=== PATIENT | female | born 1970 | race Two or more races ===

== ENCOUNTER → 2024-03-13 | Day surgery (SDC) | payer BC, OTHER ==
[~2024-03-13] VITALS: Ht 167.6 cm; Wt 118.8 kg
[~2024-03-13] MED LIST: AMLO1TAB23 PO; KETAMINE 50mg/ML 1ml syringe ONE; NAP500T PO; ONDANSETRON HCL 4 MG/2 ML VIAL ONE; PROPOFOL 10 MG/ML 20 ML IV ONE
--- NOTE | 2024-03-13 10:10 | DVHHP2 ---
GI H&P Pre-Op Assessment Date: 03/13/24 Chief complaint: epigastric pain and heartburn HPI: per clinic note Past medical history: per clinic note Past surgical history: per clinic note Family history: per clinic note Physical exam: General: NAD, AAOX3 HEENT: PERRL, no scleral icterus, normal hearing, gums without lesions or bleeding, oropharynx clear without erythema or exudate. Neck: Supple without enlargement of the thyroid, or lymphadenopathy. Chest: Normal size and shape, no tenderness, lung bedoya clear to auscultation and percussion, nonlabored breathing. Heart: RRR, no murmur Abdomen: non-distended, no tenderness to palpation, +BS, no hepatosplenomegaly Extremities: no edema Neurological: CN II-XII intact, sensation intact in all extremities, 5+ strength in all extremities Skin: No rashes, No jaundice Assessment: - epigastric pain and heartburn Plan: - EGD - Risks (bleeding, infection, perforation, reaction to sedation medications and cardiopulmonary arrest) and benefit of the procedure were explained to patient. Patient agrees to undergo the procedure. COLTON PEÑALOZA MD Mar 13, 2024 10:10
[2024-03-13 10:33] VITALS: RESP 19; TEMP 97.1; O2SAT 97
--- NOTE | 2024-03-13 10:34 | DVHOP2 ---
Operative Report DATE OF OPERATION: 03/13/24 PROCEDURE: Upper Endoscopy. PREOPERATIVE INDICATION: The patient is a 54 -year-old female undergoing endoscopy for epigastric pain and heartburn. POSTOPERATIVE DIAGNOSES: 1. Gastritis PROCEDURE PERFORMED BY: Cayden Contreras SCOPE: Olympus videoendoscope. ASA CLASS: 3 PREOPERATIVE MEDICATIONS: MAC with Dr Asif PROCEDURE IN DETAIL: After obtaining an informed consent, the patient was placed on left lateral decubitus position. The patient was then sedated with the above medications. A bite block was placed between her teeth. The endoscope was then passed through the oropharynx, into the esophagus, and through the stomach and pylorus up to the second and third part of the duodenum. The duodenum was normal in appearance. There was mild gastritis. Gastric biopsies were obtained. The GEJ was normal in appearance at 35 cm. The esophagus was normal in appearance. The endoscope was then withdrawn. The patient tolerated the procedure well without difficulty. COMPLICATIONS : None SPECIMENS: Gastric biopsies DISPOSITION: D/C to home PLAN: 1. Await for biopsy result 2. Continue with Protonix CAYDEN CONTRERAS MD Mar 13, 2024 10:34
--- NOTE | 2024-03-13 10:34 | DVHDS2 ---
Physician Discharge Progress N Final Diagnosis: gastritis Operations or Procedures: Operations or Procedures EGD with biopsy Condition on Discharge: Good Disposition: Home Discharge Instructions: Diet: Regular Activity: No Restrictions, As Tolerated Medications: resume with previous home medications. Follow Up Care: Discharge Statement: "Patient was advised to return to the ER or call 911 if any headaches, dizziness, shortness of breath, chest pain, abdominal pain, bleeding, fevers, or worsening of medical condition. Patient was counseled about treatment plan, medications, possible side effects, patientverbalized understanding. All questions were answered to the best of my ability. This discharge took greater then 30 minutes in planning, reviewing documentation, counseling the patient, and discussing with other team members." COLTON PEÑALOZA MD Mar 13, 2024 10:34
[2024-03-13 10:50] VITALS: BP 125/60; PULSE 73; RESP 11; O2SAT 97
== END | disposition home or self-care (01) ==
LOC: GI 08:16
PROVIDERS: ATTEND Internal Medicine Gastroenterology
DX: R10.13 Epigastric pain (principal); K29.50 Unspecified chronic gastritis without bleeding; I10 Essential (primary) hypertension; E66.9 Obesity, unspecified; Z98.890 Other specified postprocedural states; Z88.0 Allergy status to penicillin; Z90.49 Acquired absence of other specified parts of digestive tract; Z86.16 Personal history of COVID-19; Z79.899 Other long term (current) drug therapy
CPT/HCPCS: 43239; 88305; 88312; 88342; J2405; J2704; J7030

== ENCOUNTER 2024-04-10 09:54 | Day surgery (SDC) | payer BC, OTHER ==
[~2024-04-10] VITALS: Ht 167.6 cm; Wt 121.1 kg
[~2024-04-10 09:54] MED LIST changes: -KETAMINE 50mg/ML 1ml syringe ONE; -ONDANSETRON HCL 4 MG/2 ML VIAL ONE; +PANT40TA2 PO; -PROPOFOL 10 MG/ML 20 ML IV ONE
[2024-04-10] MEDS ORDERED: PROPOFOL 10 MG/ML 20 ML IV ONE (12:11)
[2024-04-10] MEDS ORDERED: fentaNYL CITRATE 100 MCG/2 ML VL ONE (12:11)
[2024-04-10 12:36] VITALS: PULSE 76; RESP 16; TEMP 96.8; O2SAT 95
--- NOTE | 2024-04-10 12:37 | DVHHP2 ---
GI H&P Pre-Op Assessment Date: 04/10/24 Chief complaint: rectal bleeding. HPI: per clinic note Past medical history: per clinic note Past surgical history: per clinic note Family history: per clinic note Physical exam: General: NAD, AAOX3 HEENT: PERRL, no scleral icterus, normal hearing, gums without lesions or b leeding, oropharynx clear without erythema or exudate. Neck: Supple without enlargement of the thyroid, or lymphadenopathy. Chest: Normal size and shape, no tenderness, lung bedoya clear to auscultation and percussion, nonlabored breathing. Heart: RRR, no murmur Abdomen: non-distended, no tenderness to palpation, +BS, no hepatosplenomegaly Extremities: no edema Neurological: CN II-XII intact, sensation intact in all extremities, 5+ strength in all extremities Skin: No rashes, No jaundice Assessment: - rectal bleeding Plan: - Colonoscopy - Risks (bleeding, infection, perforation, reaction to sedation medications and cardiopulmonary arrest) and benefit of the procedure were explained to patient. Patient agrees to undergo the procedure. COLTON PEÑALOZA MD Apr 10, 2024 12:37
--- NOTE | 2024-04-10 12:39 | DVHOP2 ---
Operative Report DATE OF OPERATION: 04/10/24 PROCEDURE: Colonoscopy. PREOPERATIVE INDICATION: The patient is a 54 -year-old female undergoing colonoscopy for rectal bleeding. POSTOPERATIVE DIAGNOSES: 1. Internal hemorrhoids PROCEDURE PERFORMED BY: Cayden Contreras M.D. SCOPE: Olympus videocolonoscope. ASA CLASS: 3 PREOPERATIVE MEDICATIONS: MAC with Dr Cortez PROCEDURE IN DETAIL: After obtaining an informed consent, the patient was placed on left lateral decubitus position. She was then sedated with the above medications. A rectal examination was performed that was normal. The colonos cope was then passed through the anus into the rectosigmoid and through the descending, transverse, and ascending colon up to the cecum with visualization of the appendiceal orifice, base of the cecum and the ileocecal valve. No mass or polyp was observed. There were internal hemorrhoids. The colonoscope was then withdrawn. The patient tolerated the procedure well without difficulty. WITHDRAWAL TIME: 6 minutes QUALITY OF THE PREP: Cushing Bowel Prep score: 7 COMPLICATIONS : None SPECIMENS: None DISPOSITION: D/C to home PLAN: 1. Repeat colonoscopy in 10 years for colon cancer screening. CAYDEN CONTRERAS MD Apr 10, 2024 12:39
--- NOTE | 2024-04-10 12:39 | DVHDS2 ---
Physician Discharge Progress N Final Diagnosis: internal hemorrhoids Operations or Procedures: Operations or Procedures colonoscopy Condition on Discharge: Good Disposition: Home Discharge Instructions: Diet: Regular Activity: No Restrictions, As Tolerated Medications: resume previous home medications Follow Up Care: Discharge Statement: "Patient was advised to return to the ER or call 911 if any headaches, dizziness, shortness of breath, chest pain, abdominal pain, bleeding, fevers, or worsening of medical condition. Patient was counseled about treatment plan, medications, possible side effects, patientverbalized understanding. All questions were answered to the best of my ability. This discharge took greater then 30 minutes in planning, reviewing documentation, counseling the patient, and discussing with other team members." COLTON PEÑALOZA MD Apr 10, 2024 12:39
[2024-04-10 13:05] VITALS: BP 118/72; PULSE 7; RESP 18; O2SAT 96
== END 2024-04-10 13:15 | disposition home or self-care (01) ==
LOC: GI 09:54
PROVIDERS: ATTEND Internal Medicine Gastroenterology
DX: K62.5 Hemorrhage of anus and rectum (principal); K64.8 Other hemorrhoids; I10 Essential (primary) hypertension; Z90.49 Acquired absence of other specified parts of digestive tract; Z79.899 Other long term (current) drug therapy; Z98.890 Other specified postprocedural states; Z88.1 Allergy status to other antibiotic agents; Z88.8 Allergy status to other drugs, medicaments and biological substances
CPT/HCPCS: 45378; J2704; J3010; J7030